=== PATIENT | female | born 1960 | race Caucasian/White ===

== ENCOUNTER 2018-05-18 21:07 | Emergency (ER) | payer MEDICAID ==
[~2018-05-18] VITALS: Ht 160 cm; Wt 109.0 kg
[2018-05-18] MEDS ORDERED: LORAZEPAM 1MG TABLET PO ONE (23:15)
[2018-05-18 23:34] LABS: BASOPHILS % 0.8 % (0.0-2.0); EOSINOPHILS % 3.2 % (0.0-5.0); HEMATOCRIT. 42.7 % (36.0-48.0); HEMOGLOBIN. 14.6 g/dL (12.0-16.0); LYMPHOCYTES % 35.4 % (20.0-50.0); MEAN CORPUSCULAR HEMOGLOBIN 30.6 pg (28.0-32.0); MEAN CORPUSCULAR VOLUME 89.4 fL (81.0-99.0); MONOCYTES % 7.3 % (2.0-8.0); NEUTROPHILS % 53.3 % (40.0-76.0); PLATELET 153 x1000/uL (130-400); RED BLOOD CELL COUNT 4.78 mill/uL (4.2-5.4); RED CELL DISTRIBUTION WIDTH 14.5 % (11.6-14.6)
[2018-05-18 23:39] LABS: CHLORIDE 107 mEq/L (98-107)
[2018-05-18 23:44] LABS: ETHANOL BLOOD < 10 mg/dL
[2018-05-19 01:25] LABS: *AMPHETAMINES SCREEN URINE NEGATIVE (NEGATIVE); CANNABINOID URINE SCREEN NEGATIVE (NEGATIVE); METHADONE URINE SCREEN NEGATIVE (NEGATIVE); OPIATES URINE SCREEN NEGATIVE (NEGATIVE); PHENCYCLIDINE URINE SCREEN NEGATIVE (NEGATIVE)
[2018-05-19 01:26] LABS: *BARBITURATES SCREEN URINE NEGATIVE (NEGATIVE); *BENZODIAZEPINES SCREEN URINE NEGATIVE (NEGATIVE); *COCAINE SCREEN URINE NEGATIVE (NEGATIVE)
[2018-05-19 12:45] VITALS: BP 136/72
== END 2018-05-19 13:28 | disposition home or self-care (01) ==
LOC: ER 21:07
DX: F41.9 Anxiety disorder, unspecified (principal); R45.851 Suicidal ideations; F32.9 Major depressive disorder, single episode, unspecified; Z90.710 Acquired absence of both cervix and uterus; Z90.49 Acquired absence of other specified parts of digestive tract
CPT/HCPCS: 36415; 80305; 80307; 80320; 80329; 99284; G0480

== ENCOUNTER 2020-07-23 11:32 | Emergency (ER) | payer MEDICAID ==
[~2020-07-23] VITALS: Ht 160 cm; Wt 127.0 kg
[2020-07-23] MEDS ORDERED: METFORMIN (11:33)
[2020-07-23] MEDS ORDERED: SODIUM CHLORIDE 0.9% 1,000 ML IV ONE (12:00)
[2020-07-23 12:37] LABS: BASOPHILS % 0.6 % (0.0-2.0); HEMATOCRIT. 41.9 % (36.0-48.0); HEMOGLOBIN. 14.2 g/dL (12.0-16.0); LYMPHOCYTES % 35.3 % (20.0-50.0); MEAN CORPUSCULAR HEMOGLOBIN 30.9 pg (28.0-32.0); MEAN PLATELET VOLUME 8.2 fl (7.4-10.4); NEUTROPHILS % 57.1 % (40.0-76.0); PLATELET 140 x1000/uL (130-400); RED CELL DISTRIBUTION WIDTH 14.5 % (11.6-14.6)
[2020-07-23 12:44] LABS: CHLORIDE 108 mEq/L (98-107)
[2020-07-23 12:48] LABS: ETHANOL BLOOD 21 mg/dL
[2020-07-23] MEDS ORDERED: MECLIZINE 25MG TABLET PO ONE (14:30)
[2020-07-23] MEDS ORDERED: LORAZEPAM 2MG/ML CPJ IV ONE (16:15)
[2020-07-23] MEDS ORDERED: MECL-159 MT (17:00)
[2020-07-23 17:33] VITALS: BP 151/63
== END 2020-07-23 17:43 | disposition home or self-care (01) ==
LOC: ER 11:32
DX: R11.2 Nausea with vomiting, unspecified (principal); I10 Essential (primary) hypertension; E11.9 Type 2 diabetes mellitus without complications; Z90.710 Acquired absence of both cervix and uterus; Z90.89 Acquired absence of other organs
CPT/HCPCS: 36415; 70450; 71045; 80053; 80320; 83880; 84484; 85025; 93005; 96374; 99285; J2060; J7030; J8597; G0480

== ENCOUNTER 2024-12-05 18:36 | Emergency (ER) | payer MEDICAID, OTHER ==
[~2024-12-05] VITALS: Ht 167.6 cm; Wt 109.0 kg
[~2024-12-05 18:36] MED LIST: MECL-299 MT; METFORMIN
[2024-12-05 19:08] VITALS: O2SAT 95
[2024-12-05] MEDS: ACETAMINOPHEN 325MG TABLET PO ONE (20:35)
[2024-12-05] MEDS: IBUPROFEN 800MG TABLET PO ONE (21:13)
[2024-12-05 21:39] LABS: BASOPHILS % 0.4 % (0.0-2.0); EOSINOPHILS % 3.3 % (0.0-5.0); HEMATOCRIT. 45.0 % (36.0-48.0); HEMOGLOBIN. 14.9 g/dL (12.0-16.0); LYMPHOCYTES % 35.3 % (20.0-50.0); MEAN PLATELET VOLUME 8.3 fl (7.4-10.4); MONOCYTES % 7.3 % (2.0-8.0); NEUTROPHILS % 53.7 % (40.0-76.0); PLATELET 142 x1000/uL (130-400); RED BLOOD CELL COUNT 5.00 mill/uL (4.2-5.4); RED CELL DISTRIBUTION WIDTH 14.7 % (11.6-14.6)
[2024-12-05 22:00] LABS: CREATININE 0.9 mg/dL (0.6-1.0); UREA NITROGEN BLOOD 10 mg/dL (9-23)
[2024-12-05 22:40] VITALS: BP 150/83; PULSE 80; RESP 16; TEMP 36.6; O2SAT 96
== END 2024-12-05 22:46 | disposition home or self-care (01) ==
LOC: ER 18:36
DX: M25.562 Pain in left knee (principal); F31.9 Bipolar disorder, unspecified; E11.9 Type 2 diabetes mellitus without complications; I10 Essential (primary) hypertension; Z90.710 Acquired absence of both cervix and uterus; Z79.899 Other long term (current) drug therapy
CPT/HCPCS: 36415; 73562; 80048; 85025; 99284